=== PATIENT | female | born 1975 | race American Indian/Alaskan Native ===

== ENCOUNTER 2016-07-03 15:44 | Emergency (ER) | payer SELFPAY | END 2016-07-03 15:45 | disposition left against medical advice (07) | LOC: ED 15:44 | DX: Z53.21 Procedure and treatment not carried out due to patient leaving prior to being seen by health care provider (principal) ==

== ENCOUNTER 2017-12-02 00:31 | Emergency (ER) | payer SELFPAY ==
[2017-12-02 01:25] VITALS: BP 140/79
--- NOTE | 2017-12-02 02:29 | XRay Report ---
FINAL REPORT PROCEDURE: XR ANKLE 2V RT TECHNIQUE: RIGHT ankle radiographs, AP and lateral views. HISTORY: R ankle pain COMPARISON: No prior studies are available for comparison. FINDINGS: Fracture (s) and/or Dislocation(s): There is no acute fracture or dislocation. There is an old healed fracture of the distal fibula. Alignment: Normal. Joint space(s): Normal. Soft tissues: Normal. Bone mineralization: Normal. Foreign bodies: Normal. Calcaneal spurring: Normal. IMPRESSION: No evidence of an acute fracture or dislocation of the right ankle. Previous healed trauma to the distal right fibula..
--- NOTE | 2017-12-02 03:12 | Emergency Department Report ---
ED Lower Extremity HPI - General Chief Complaint: Extremity Problem,Nontraumatic Stated Complaint: RT LEG PAIN Time Seen by Provider: 12/02/17 02:05 Source: patient Mode of arrival: Ambulatory Limitations: No Limitations - History of Present Illness Initial Comments: There is a 42-year-old female who presents for right ankle pain is a recurrence of a chronic injury patient denies fall injury or trauma this episode patient did have a previous injury to the right ankle however he'll greater than 3 years and also occasional pain and aching swelling same joint pain at this time is 4 out 10 aching prolonged standing MD Complaint: ankle injury Onset/Timin -: unknown (chronic pain ) Injury: Ankle: Right Type of Injury: other Place: home Severity: moderate Severity scale (0 -10): 5 Improves With: nothing Context: other (chonric Gluta cuff ) Associated Symptoms: swelling, numbness, tingling, able to partially bear weight - Related Data Home Medications Medication Instructions Recorded Confirmed Last Taken HCTZ 12.5 mg PO DAILY 04/06/15 04/06/15 Unknown Previous Rx's Medication Instructions Recorded Last Taken Type Gentamicin 0.3% Ophth Soln 1 drops OP Q4H #1 bottle 04/07/15 Unknown Rx traMADol [Ultram 50 MG tab] 50 mg PO Q4HR PRN #20 tablet 04/07/15 Unknown Rx Ibuprofen [Motrin 800 MG tab] 800 mg PO Q8HR PRN #30 tablet 12/02/17 Unknown Rx Allergies Allergy/AdvReac Type Severity Reaction Status Date / Time Sulfa (Sulfonamide Allergy Unknown Verified 10/23/13 03:34 Antibiotics) ED Review of Systems ROS: Stated complaint: RT LEG PAIN Other details as noted in HPI Constitutional: denies: chills, fever Eyes: denies: eye pain, eye discharge, vision change ENT: denies: ear pain, throat pain Respiratory: denies: cough, shortness of breath, wheezing Cardiovascular: denies: chest pain, palpitations Endocrine: no symptoms reported Gastrointestinal: denies: abdominal pain, nausea, diarrhea Genitourinary: denies: urgency, dysuria, discharge Musculoskeletal: joint swelling, arthralgia, myalgia. denies: back pain Skin: denies: rash, lesions Neurological: denies: headache, weakness, paresthesias Psychiatric: denies: anxiety, depression Hematological/Lymphatic: denies: easy bleeding, easy bruising ED Past Medical Hx - Past Medical History Previous Medical History?: No Hx Hypertension: Yes Additional medical history: ASTIGMATISM - Surgical History Past Surgical History?: Yes Additional Surgical History: ectopic x2 - Social History Smoking Status: Never Smoker Substance Use Type: None - Medications Home Medications: Home Medications Medication Instructions Recorded Confirmed Last Taken Type HCTZ 12.5 mg PO DAILY 04/06/15 04/06/15 Unknown History Gentamicin 0.3% Ophth Soln 1 drops OP Q4H #1 bottle 04/07/15 Unknown Rx traMADol [Ultram 50 MG tab] 50 mg PO Q4HR PRN #20 tablet 04/07/15 Unknown Rx Ibuprofen [Motrin 800 MG tab] 800 mg PO Q8HR PRN #30 tablet 12/02/17 Unknown Rx ED Physical Exam - General Limitations: No Limitations General appearance: alert, in no apparent distress - Head Head exam: Present: atraumatic, normocephalic - Eye Eye exam: Present: normal appearance - ENT ENT exam: Present: mucous membranes moist - Neck Neck exam: Present: normal inspection - Respiratory Respiratory exam: Present: normal lung sounds bilaterally. Absent: respiratory distress - Cardiovascular Cardiovascular Exam: Present: regular rate, normal rhythm. Absent: systolic murmur, diastolic murmur, rubs, gallop - GI/Abdominal GI/Abdominal exam: Present: distended, normal bowel sounds - Rectal Rectal exam: Present: deferred - External exam: Present: normal external exam - Extremities Exam Extremities exam: Present: normal inspection, tenderness, joint swelling - Expanded Lower Extremity Exam Right Ankle exam: Present: tenderness, swelling, erythema Foot/Toe exam: Present: full ROM, tenderness, laceration. Absent: swelling, abrasion Neuro vascular tendon exam: Present: abnormal cap refill, sensory deficit, tendon deficit. Absent: no vascular compromise, pulse deficit, motor deficit ED Course Vital Signs 12/02/17 01:15 Temperature 99 F Pulse Rate 58 L Respiratory 14 Rate Blood Pressure 140/79 O2 Sat by Pulse 99 Oximetry ED Lower Extremity MDM - Lab Data Is acute on chronic foot strain x-rays no acute fracture or soft tissue swelling to the medial foot - Radiology Data Radiology results: pending, report reviewed, image reviewed - Medical Decision Making If Plantar Puncture Wound, Discussed with Patient: Risk of Foreign Body in W This is acute on chronic ankle sprain . pt is ambulatory with steady gait, in 2 -3 Plan continue support sleeve and says muscle relaxants or pain [facility] Critical care attestation.: If time is entered above; I have spent that time in minutes in the direct care of this critically ill patient, excluding procedure time. ED Disposition Clinical Impression: Right ankle strain Qualifiers: Encounter type: initial encounter Qualified Code(s): S96.911A - Strain of unspecified muscle and tendon at ankle and foot level, right foot, initial encounter Disposition: TO HOME OR SELFCARE Is pt being admited?: No Does the pt Need Aspirin: No (arrival) Condition: Stable Instructions: Ankle Exercises (GEN) Prescriptions: Ibuprofen [Motrin 800 MG tab] 800 mg PO Q8HR PRN #30 tablet PRN Reason: pain Referrals: PRIMARY CARE, [Primary Care Provider] - 3-5 Days Forms: Work/School Release Form(ED) Time of Disposition: 03:21
== END 2017-12-02 03:30 | disposition home or self-care (01) ==
LOC: ED 00:31
DX: S96.911A Strain of unspecified muscle and tendon at ankle and foot level, right foot, initial encounter (principal); I10 Essential (primary) hypertension; Z88.2 Allergy status to sulfonamides; X58.XXXA Exposure to other specified factors, initial encounter; Y93.89 Activity, other specified; Y92.89 Other specified places as the place of occurrence of the external cause; Y99.8 Other external cause status
CPT/HCPCS: 99283

== ENCOUNTER 2018-12-08 10:37 | Emergency (ER) | payer BC ==
--- NOTE | 2018-12-08 11:02 | Emergency Department Report ---
Minor Respiratory - HPI Chief Complaint: Extremity Problem,Nontraumatic Stated Complaint: BI ANKLE SWOLLEN Time Seen by Provider: 12/08/18 10:56 Pain Location: Other Minor Respiratory: Yes Able to Tolerate Fluids, No Rhinorrhea, No Sore Throat, No Ear Pain, No Cough, No Sick Contacts, No Hemoptysis, No Chest Pain, No Sh ortness of Breath, No Fever Other History: 43 YO OBESE AA FEMALE COMES TO ER CO B ANKLE SWELLING FOR WEEKS. SHE HAS NOT SEEN PCP. NO RECENT INJURY. PERVIOUS FX R ANKLE CHILD. NO CP. NO SOB. PMH. ANXIETY/INSOMINA. RX. KLONOPIN. PCP [facility] ED Review of Systems ROS: Stated complaint: BI ANKLE SWOLLEN Other details as noted in HPI Comment: All other systems reviewed and negative ED Past Medical Hx - Past Medical History Previous Medical History?: Yes Hx Hypertension: Yes (taken of bp meds by PMD in 2015) Additional medical history: ASTIGMATISM - Surgical History Past Surgical History?: Yes Additional Surgical History: ectopic x2 - Family History Family history: no significant - Social History Smoking Status: Never Smoker Substance Use Type: Alcohol Minor Respiratory Exam - Exam General: Vital signs noted. No distress. Alert and acting appropriately. HEENT: Yes Moist Mucous Membranes, No Pharyngeal Erythema, No Pharyngeal Exudates Ear: Neither TM Bulge, Neither TM Erythema, Neither EAC Pain, Neither EAC Discharge Neck: Yes Supple, No Adenopathy Lungs: Yes Good Air Exchange, No Wheezes, No Ronchi Heart: Yes Regular Abdomen: Yes Normal Bowel Sounds, No Tenderness, No Peritoneal Signs Skin: No Rash Neurologic: Alert and oriented, no deficits. Musculoskeletal: Unremarkable. ED Course Vital Signs 12/08/18 10:38 Temperature 98.3 F Pulse Rate 79 Respiratory 18 Rate Blood Pressure 135/73 [Right] O2 Sat by Pulse 97 Oximetry ED Medical Decision Making - Lab Data Result diagrams: 12/08/18 11:15 12/08/18 11:15 - Medical Decision Making Labs 12/08/18 12/08/18 11:15 11:15 WBC 5.7 RBC 3.88 Hgb 11.5 Hct 34.5 MCV 89 MCH 30 MCHC 33 RDW 13.5 Plt Count 246 Sodium 140 Potassium 4.0 Chloride 104.5 Carbon Dioxide 25 Anion Gap 15 BUN 11 Creatinine 0.8 Estimated GFR > 60 BUN/Creatinine Ratio 14 Glucose 101 H Calcium 8.7 Total Bilirubin 0.40 AST 16 ALT 14 Alkaline Phosphatase 53 Total Protein 6.4 Albumin 3.8 L Albumin/Globulin Ratio 1.5 Vital Signs 12/08/18 10:38 Temperature 98.3 F Pulse Rate 79 Respiratory 18 Rate Blood Pressure 135/73 [Right] O2 Sat by Pulse 97 Oximetry LABS NOTED BP NORMAL PT IS AMBULATORY NO CP NO SOB NEG HOMANS B ANKLE PLUS 1 NON PITTING EDEMA NO MURMUR LUNGS CLEAR ABD SNT HPI CONSISTENT WITH PITTING EDEMA LASIX 20 MG PO IN ER DC HOME WITH DC PLAN OF CARE AND PCP FOLLOW UP. DISCUSSED DIET/EXERCISE/SALT INTAKE WITH PT. - Differential Diagnosis RO ANDREW/NA ABN. Critical care attestation.: If time is entered above; I have spent that time in minutes in the direct care of this critically ill patient, excluding procedure time. ED Disposition Clinical Impression: Dependent edema Disposition: DC-01 TO HOME OR SELFCARE Is pt being admited?: No Does the pt Need Aspirin: No Condition: Stable Instructions: Leg Edema (ED) Additional Instructions: SUPPORT HOSE TO LEGS WHEN STANDING DECREASE SALT TO 2GM TOTAL PER DAY ELEVATE LEGS WHEN AT REST DRINK A LOT OF WATER FOLLOW UP WITH PCP REFERRAL BELOW Referrals: JOANNA SORIA MD [Staff Physician] - 3-5 Days Time of Disposition: 11:57
[2018-12-08 11:24] LABS: Hematocrit 34.5 % (30.3-42.9); Hemoglobin 11.5 gm/dl (10.1-14.3); Mean Corpuscular HGB Conc 33 % (30-34); Mean Corpuscular Volume 89 fl (79-97); Platelet Count 246 K/mm3 (140-440); Red Blood Count 3.88 M/mm3 (3.65-5.03); Red Cell Distribution Width 13.5 % (13.2-15.2)
[2018-12-08 11:38] LABS: Alanine Aminotransferase 14 units/L (7-56); Albumin 3.8 g/dL (3.9-5); BUN/Creatinine Ratio 14; Blood Urea Nitrogen 11 mg/dL (7-17); Calcium 8.7 mg/dL (8.4-10.2); Hemolysis Index 3
[2018-12-08] MEDS ORDERED: FUROSEMIDE 20 MG TAB PO ONE (11:45)
[2018-12-08 12:15] LABS: Bacteria,Urine 1+ /HPF (Negative); Bilirubin,Urine NEG (Negative); Blood,Urine NEG (Negative); Color,Urine Yellow (Yellow); Mucus,Urine FEW /HPF; Protein,Urine <15 mg/dL mg/dL (Negative)
[2018-12-08 12:16] LABS: HCG Qualitative,Urine Negative (Negative)
[2018-12-08 12:21] VITALS: BP 131/74
== END 2018-12-08 12:20 | disposition home or self-care (01) ==
LOC: ED 10:37
DX: R60.0 Localized edema (principal); I10 Essential (primary) hypertension; Z91.030 Bee allergy status; Z88.8 Allergy status to other drugs, medicaments and biological substances; Z91.018 Allergy to other foods
CPT/HCPCS: 36415; 80053; 81001; 81025; 85027; 87086; 99283

== ENCOUNTER 2019-09-11 22:23 | Emergency (ER) | payer BC ==
[2019-09-12 03:40] VITALS: BP 139/79
--- NOTE | 2019-09-12 03:58 | XRay Report ---
LEFT FOOT 3 VIEWS INDICATION / CLINICAL INFORMATION: Left foot pain and swelling. COMPARISON: None available. FINDINGS: BONES / JOINT(S): No acute fracture or subluxation. No significant arthritis. SOFT TISSUES: No significant abnormality. ADDITIONAL FINDINGS: None. IMPRESSION: Negative study. Signer Name: Arian Montalvo MD Signed: 09/12/2019 3:54 AM Workstation Name: [id number]
[2019-09-12] MEDS ORDERED: ACETAMINOPHEN 500 MG TAB PO ONE (04:39)
[2019-09-12] MEDS ORDERED: IBUPROFEN 600 MG TAB PO ONE (04:39)
--- NOTE | 2019-09-12 05:28 | Emergency Department Report ---
ED Extremity Problem HPI - General Chief complaint: Extremity Injury, Lower Stated complaint: POSS LF FOOT FRACTURE Source: patient Mode of arrival: Ambulatory Limitations: No Limitations - History of Present Illness Initial comments: Patient is a 44-year-old -[place] female with past medical history of hypertension who presents to the ED with a complaint of acute onset persistent severe nontraumatic left foot pain for the last 3 weeks. Patient states that the pain has worsened such that walking or bearing weight on the left foot makes the pain worse. Patient denies fall, fever, chills, nausea, vomiting, dizziness, syncope, traumatic injury, chest pain, shortness of breath, heavy lifting or low back pain and hip pain. Patient states that she is on her feet a lot at work and that this makes the pain even worse. MD Complaint: extremity pain (Left foot pain), joint paint (Left foot pain) -: Sudden, week(s) (3) Location: left, lower extremity (foot) History of Same: No -: Yes arthralgia Radiation: none Severity scale (0 -10): 8 Quality: aching, sharp Consistency: constant Improves with: nothing Worsens with: weight bearing, walking, exertion, palpation Associated Symptoms: denies other symptoms, arthralgias (left foot pain). denies: chest pain, shortness of breath, fever, myalgias - Related Data Previous Rx's Medication Instructions Recorded Last Taken Type Ibuprofen [Motrin] 800 mg PO Q8HR PRN #30 tablet 09/12/19 Unknown Rx tiZANidine [Zanaflex 4mg TAB] 4 mg PO Q8H PRN #21 tablet 09/12/19 Unknown Rx traMADoL [Ultram] 50 mg PO Q6HR PRN #12 tablet 09/12/19 Unknown Rx Allergies Allergy/AdvReac Type Severity Reaction Status Date / Time tillman Allergy Diarrhea Verified 12/08/18 10:43 bee venom protein (honey bee) Allergy Anaphylaxis Verified 12/08/18 10:43 mushroom Allergy Anaphylaxis Verified 12/08/18 10:43 Sulfa (Sulfonamide Allergy Unknown Verified 12/08/18 10:43 Antibiotics) dairy Allergy Diarrhea Uncoded 02/21/18 18:27 ED Review of Systems ROS: Stated complaint: POSS LF FOOT FRACTURE Other details as noted in HPI Constitutional: denies: chills, fever Eyes: denies: eye pain, eye discharge, vision change ENT: denies: ear pain, throat pain Respiratory: denies: cough, shortness of breath, wheezing Cardiovascular: denies: chest pain, palpitations Endocrine: no symptoms reported Gastrointestinal: denies: abdominal pain, nausea, diarrhea Genitourinary: denies: urgency, dysuria, discharge Musculoskeletal: arthralgia (Left foot pain). denies: back pain, joint swelling Skin: denies: rash, lesions Neurological: denies: headache, weakness, paresthesias Psychiatric: denies: anxiety, depression Hematological/Lymphatic: denies: easy bleeding, easy bruising ED Past Medical Hx - Past Medical History Previous Medical History?: Yes Hx Hypertension: Yes (taken of bp meds by PMD in 2016) Additional medical history: ASTIGMATISM - Surgical History Past Surgical History?: Yes Additional Surgical History: ectopic x2 - Social History Smoking Status: Current Every Day Smoker Substance Use Type: Alcohol - Medications Home Medications: Home Medications Medication Instructions Recorded Confirmed Last Taken Type Ibuprofen [Motrin] 800 mg PO Q8HR PRN #30 tablet 09/12/19 Unknown Rx tiZANidine [Zanaflex 4mg TAB] 4 mg PO Q8H PRN #21 tablet 09/12/19 Unknown Rx traMADoL [Ultram] 50 mg PO Q6HR PRN #12 tablet 09/12/19 Unknown Rx ED Physical Exam - General Limitations: No Limitations General appearance: alert, in no apparent distress - Head Head exam: Present: atraumatic, normocephalic, normal inspection - Eye Eye exam: Present: normal appearance, PERRL, EOMI Pupils: Present: normal accommodation - ENT ENT exam: Present: normal exam, normal orophraynx, mucous membranes moist, TM's normal bilaterally, normal external ear exam - Neck Neck exam: Present: normal inspection, full ROM - Respiratory Respiratory exam: Present: normal lung sounds bilaterally. Absent: respiratory distress, wheezes, rales, stridor, chest wall tenderness, accessory muscle use - Cardiovascular Cardiovascular Exam: Present: regular rate, normal rhythm, normal heart sounds. Absent: systolic murmur, diastolic murmur, rubs, gallop - GI/Abdominal GI/Abdominal exam: Present: soft, normal bowel sounds. Absent: tenderness, guarding, rebound, hyperactive bowel sounds, hypoactive bowel sounds, organomegaly - Extremities Exam Extremities exam: Present: normal inspection, tenderness (Palpable severe left lateral foot tenderness with limited range of motion due to pain), normal capillary refill. Absent: full ROM (Limited range of motion of left foot due to pain), joint swelling, calf tenderness - Back Exam Back exam: Present: normal inspection, full ROM. Absent: tenderness, muscle spasm, paraspinal tenderness, vertebral tenderness - Neurological Exam Neurological exam: Present: alert, oriented X3, CN II-XII intact, normal gait, reflexes normal - Psychiatric Psychiatric exam: Present: normal affect, normal mood - Skin Skin exam: Present: warm, dry, intact, normal color. Absent: rash ED Course Vital Signs 09/11/19 09/12/19 22:59 03:39 Temperature 98.4 F Pulse Rate 65 58 L Respiratory 18 16 Rate Blood Pressure 139/79 Blood Pressure 136/80 [Right] O2 Sat by Pulse 99 98 Oximetry ED Medical Decision Making - Radiology Data Radiology results: report reviewed, image reviewed Findings [facility] [address] [place] [address] XRay Report Signed Patient: JACKELYN SCRUGGS MR#: [id number] : 1975 Acct:[id number] Age/Sex: 44 / F ADM Date: 09/11/19 Loc: ED Attending Dr: Ordering Physician: BLANQUITA FLORENTINO MD Date of Service: 09/11/19 Procedure(s): XR foot 3+V LT Accession Number(s): [id number] cc: ED MD MISHEL Fluoro Time In Minutes: LEFT FOOT 3 VIEWS INDICATION / CLINICAL INFORMATION: Left foot pain and swelling. COMPARISON: None available. FINDINGS: BONES / JOINT(S): No acute fracture or subluxation. No significant arthritis. SOFT TISSUES: No significant abnormality. ADDITIONAL FINDINGS: None. IMPRESSION: Negative study. Signer Name: Arian Montalvo MD Signed: 09/12/2019 3:54 AM Workstation Name: [id number] Transcribed By: RT Dictated By: Arian Montalvo MD Electronically Authenticated By: Arian Montalvo MD Signed Date/Time: 09/12/19353 DD/ 3 TD/TT: - Medical Decision Making This is a 44-year-old -[place] female with past medical history of hypertension who presents to the ED with a complaint of acute onset persistent severe nontraumatic left foot pain for the last 3 weeks. Patient states that the pain has worsened such that walking or bearing weight on the left foot makes the pain worse. In the ED, patient is alert and oriented x3 and is not in distress but appears to be in pain. Patient was treated for pain in the ED and left foot x-ray shows no acute fractures or subluxations. The patient left foot was splinted with Herman wrap and fitted with postop shoe. Patient was discharged home on pain medications and muscle relaxants and was advised to follow-up with her primary care physician in 5 to 7 days for reevaluation or return to the ED immediately if symptoms get worse. - Differential Diagnosis Foot fracture; Foot sprain; Tendonitis of foot; Muscle strain Critical care attestation.: If time is entered above; I have spent that time in minutes in the direct care of this critically ill patient, excluding procedure time. ED Disposition Clinical Impression: Tendinitis of left foot Sprain of left foot Qualifiers: Encounter type: initial encounter Qualified Code(s): S93.602A - Unspecified sprain of left foot, initial encounter Muscle strain of left foot Qualifiers: Encounter type: initial encounter Qualified Code(s): S96.912A - Strain of unspecified muscle and tendon at ankle and foot level, left foot, initial encounter Disposition: - TO HOME OR SELFCARE Is pt being admited?: No Does the pt Need Aspirin: No Condition: Stable Instructions: Muscle Strain (ED), Foot Sprain (ED), Tendinitis (ED) Additional Instructions: Take medications with food, drink plenty of fluids and follow-up with your primary care physician in 7 to 10 days for reevaluation. Return to the ED immediately if symptoms get worse. Prescriptions: Ibuprofen [Motrin] 800 mg PO Q8HR PRN #30 tablet PRN Reason: Pain , Severe (7-10) traMADoL [Ultram] 50 mg PO Q6HR PRN #12 tablet PRN Reason: Pain tiZANidine [Zanaflex 4mg TAB] 4 mg PO Q8H PRN #21 tablet PRN Reason: Muscle Spasm Referrals: ABIEL BENITO JR, MD [Primary Care Provider] - 3-5 Days Forms: Work/School Release Form(ED) Time of Disposition: 05:32 Print Language: SWEDISH
== END 2019-09-12 06:10 | disposition home or self-care (01) ==
LOC: ED 22:23
DX: S93.602A Unspecified sprain of left foot, initial encounter (principal); M77.52 Other enthesopathy of left foot and ankle; I10 Essential (primary) hypertension; F17.200 Nicotine dependence, unspecified, uncomplicated; Z98.890 Other specified postprocedural states; Z79.1 Long term (current) use of non-steroidal anti-inflammatories (NSAID); Z79.899 Other long term (current) drug therapy; Z91.018 Allergy to other foods; Z91.030 Bee allergy status; X58.XXXA Exposure to other specified factors, initial encounter; Y93.89 Activity, other specified; Y92.89 Other specified places as the place of occurrence of the external cause; Y99.8 Other external cause status

== ENCOUNTER 2021-01-09 11:04 | Emergency (ER) | payer BC ==
--- NOTE | 2021-01-09 11:58 | Emergency Department Report ---
ED General Adult HPI - General Chief complaint: Upper Respiratory Infection Stated complaint: EXPOSED TO VIRUS Time Seen by Provider: 01/09/21 11:24 Source: patient Mode of arrival: Ambulatory Limitations: No Limitations - History of Present Illness Initial comments: 45-year-old -[place] female patient presents with complaints of cough, fatigue, and sore throat x1 week. Patient states her symptoms began after having contact with a patient who was diagnosed with mononucleosis pneumonia. Patient states she gave to breathing treatments to the patient. She denies any hemoptysis, shortness of breath, chest pain, fever. she states that she does have some loss of taste, but has normal smell. She has not been tested or vaccinated for COVID-19 per patient. She states the patient she had contact with has tested negative for COVID-19 3 times since the onset of his symptoms. Past medical history includes hypertension. Severity scale (0 -10): 6 - Related Data Previous Rx's Medication Instructions Recorded Last Taken Type Ibuprofen [Motrin] 800 mg PO Q8HR PRN #30 tablet 09/12/19 Unknown Rx tiZANidine [Zanaflex 4mg TAB] 4 mg PO Q8H PRN #21 tablet 09/12/19 Unknown Rx traMADoL [Ultram] 50 mg PO Q6HR PRN #12 tablet 09/12/19 Unknown Rx Benzonatate 200 mg PO TID PRN #30 capsule 01/09/21 Unknown Rx Loratadine [Claritin] 10 mg PO QDAY PRN #10 tablet 01/09/21 Unknown Rx Allergies Allergy/AdvReac Type Severity Reaction Status Date / Time tillman Allergy Diarrhea Verified 12/08/18 10:43 bee venom protein (honey bee) Allergy Anaphylaxis Verified 12/08/18 10:43 mushroom Allergy Anaphylaxis Verified 12/08/18 10:43 Sulfa (Sulfonamide Allergy Unknown Verified 12/08/18 10:43 Antibiotics) dairy Allergy Diarrhea Uncoded 02/21/18 18:27 ED Review of Systems ROS: Stated complaint: EXPOSED TO VIRUS Other details as noted in HPI Constitutional: malaise. denies: chills, diaphoresis, fever ENT: throat pain Respiratory: cough. denies: shortness of breath Cardiovascular: denies: chest pain Gastrointestinal: denies: abdominal pain, nausea, vomiting Genitourinary: denies: urgency, dysuria, frequency Musculoskeletal: denies: back pain Skin: denies: rash, lesions Neurological: denies: headache Hematological/Lymphatic: denies: swollen glands ED Past Medical Hx - Past Medical History Hx Hypertension: Yes (taken of bp meds by PMD in 2016) Additional medical history: ASTIGMATISM - Surgical History Additional Surgical History: ectopic x2 - Social History Smoking Status: Current Every Day Smoker Substance Use Type: Alcohol - Medications Home Medications: Home Medications Medication Instructions Recorded Confirmed Last Taken Type Ibuprofen [Motrin] 800 mg PO Q8HR PRN #30 tablet 09/12/19 Unknown Rx tiZANidine [Zanaflex 4mg TAB] 4 mg PO Q8H PRN #21 tablet 09/12/19 Unknown Rx traMADoL [Ultram] 50 mg PO Q6HR PRN #12 tablet 09/12/19 Unknown Rx Benzonatate 200 mg PO TID PRN #30 capsule 01/09/21 Unknown Rx Loratadine [Claritin] 10 mg PO QDAY PRN #10 tablet 01/09/21 Unknown Rx ED Physical Exam - General Limitations: No Limitations General appearance: alert, in no apparent distress - Head Head exam: Present: atraumatic, normocephalic - Eye Eye exam: Present: normal appearance. Absent: scleral icterus - Neck Neck exam: Present: normal inspection - Respiratory Respiratory exam: Present: normal lung sounds bilaterally. Absent: respiratory distress, wheezes, rales, rhonchi, accessory muscle use - Cardiovascular Cardiovascular Exam: Present: regular rate, normal rhythm. Absent: systolic murmur, diastolic murmur, rubs, gallop - Neurological Exam Neurological exam: Present: alert, oriented X3 - Psychiatric Psychiatric exam: Present: normal affect, normal mood - Skin Skin exam: Present: warm, dry, intact, normal color. Absent: rash ED Course Vital Signs 01/09/21 01/09/21 11:12 15:39 Temperature 98.6 F 97.6 F Pulse Rate 103 H 98 H Respiratory 18 20 Rate Blood Pressure 146/91 132/81 [Right] O2 Sat by Pulse 100 100 Oximetry ED Medical Decision Making - Radiology Data Radiology results: report reviewed 45-year-old -[place] female patient presents with complaints of cough, fatigue, and sore throat x1 week. Patient states her symptoms began after having contact with a patient who was diagnosed with mononucleosis pneumonia. Patient states she gave to breathing treatments to the patient. She denies any hemoptysis, shortness of breath, chest pain, fever. she states that she does have some loss of taste, but has normal smell. She has not been tested or vaccinated for COVID-19 per patient. She states the patient she had contact with has tested negative for COVID-19 3 times since the onset of his symptoms. Past medical history includes hypertension. - Medical Decision Making CHEST 2 VIEWS INDICATION / CLINICAL INFORMATION: Cough. COMPARISON: None available. FINDINGS: SUPPORT DEVICES: None. HEART / MEDIASTINUM: The heart size and pulmonary vasculature are normal. LUNGS / PLEURA: No significant pulmonary or pleural abnormality. No pneumothorax. ADDITIONAL FINDINGS: No significant additional findings. IMPRESSION: No acute findings. Critical care attestation.: If time is entered above; I have spent that time in minutes in the direct care of this critically ill patient, excluding procedure time. ED Disposition Clinical Impression: URI (upper respiratory infection) Disposition: HOME / SELF CARE / HOMELESS Is pt being admited?: No Condition: Stable Instructions: Viral Respiratory Infection Additional Instructions: Please seek out outpatient COVID-19 testing within the next 24 to 48 hours and self quarantine until your results are back and further instructions are given. Prescriptions: Benzonatate 200 mg PO TID PRN #30 capsule PRN Reason: Cough Loratadine [Claritin] 10 mg PO QDAY PRN #10 tablet PRN Reason: Congestion Referrals: PRIMARY CARE, [Primary Care Provider] - 3-5 Days [facility] [Provider Group] - 3-5 Days Forms: Work/School Release Form(ED)
--- NOTE | 2021-01-09 12:59 | XRay Report ---
CHEST 2 VIEWS INDICATION / CLINICAL INFORMATION: Cough. COMPARISON: None available. FINDINGS: SUPPORT DEVICES: None. HEART / MEDIASTINUM: The heart size and pulmonary vasculature are normal. LUNGS / PLEURA: No significant pulmonary or pleural abnormality. No pneumothorax. ADDITIONAL FINDINGS: No significant additional findings. IMPRESSION: No acute findings. Signer Name: Arian Montalvo MD Signed: 01/09/2021 12:55 PM Workstation Name: [id number]
[2021-01-09 15:41] VITALS: BP 132/81
== END 2021-01-09 15:39 | disposition home or self-care (01) ==
LOC: ED 11:04
DX: J06.9 Acute upper respiratory infection, unspecified (principal); F17.200 Nicotine dependence, unspecified, uncomplicated; F10.20 Alcohol dependence, uncomplicated; I10 Essential (primary) hypertension; Z91.030 Bee allergy status; Z91.011 Allergy to milk products; Z88.2 Allergy status to sulfonamides; Z91.018 Allergy to other foods
CPT/HCPCS: 36415; 71046; 86308; 99283

== ENCOUNTER 2021-02-25 01:38 | Emergency (ER) | payer BC ==
--- NOTE | 2021-02-25 07:16 | Emergency Department Report ---
ED Fever HPI - General Chief Complaint: Fever Stated Complaint: FEVER/BODYACHES Time Seen by Provider: 02/25/21 06:56 - History of Present Illness Initial Comments: Patient presents with fever, chills, myalgia, and headache for 1 day. She started getting sick last night at work. She came here for evaluation. She took Tylenol and felt a little better. She also states that she took tramadol and Motrin. She has had no sick contacts. She does report cough congestion. She has had generalized malaise. Her daughter is at home sick with a sore throat. She was concerned that she may have Covid and came here. Patient has h ad no known coronavirus exposure. She did not get a Covid test prior to arrival or yesterday. She did not get Covid vaccination or influenza vaccination. Other than the respiratory symptoms and fever and muscle aches, she has no complaints. There has been no GI component. She has no urinary component. There is no rash. ED Review of Systems ROS: Stated complaint: FEVER/BODYACHES Other details as noted in HPI Comment: All other systems reviewed and negative Constitutional: see HPI Eyes: denies: eye pain ENT: denies: epistaxis Respiratory: see HPI Cardiovascular: denies: chest pain Endocrine: denies: unexplained weight loss Gastrointestinal: denies: abdominal pain Genitourinary: denies: dysuria Musculoskeletal: as per HPI Skin: denies: rash Neurological: denies: headache Hematological/Lymphatic: denies: easy bruising ED Past Medical Hx - Past Medical History Hx Hypertension: Yes (taken of bp meds by PMD in 2016) Additional medical history: ASTIGMATISM - Surgical History Additional Surgical History: ectopic x2 - Family History Family history: hypertension - Social History Smoking Status: Current Every Day Smoker Substance Use Type: Alcohol - Medications Home Medications: Home Medications Medication Instructions Recorded Confirmed Last Taken Type tiZANidine [Zanaflex 4mg TAB] 4 mg PO Q8H PRN #21 tablet 09/12/19 Unknown Rx traMADoL [Ultram] 50 mg PO Q6HR PRN #12 tablet 09/12/19 Unknown Rx Loratadine [Claritin] 10 mg PO QDAY PRN #10 tablet 01/09/21 Unknown Rx Benzonatate 200 mg PO TID PRN #30 capsule 02/25/21 Unknown Rx Ibuprofen [Motrin 800 MG tab] 800 mg PO Q8HR PRN #30 tablet 02/25/21 Unknown Rx methylPREDNISolone [Medrol 4MG 4 mg PO DAILY #1 tab.ds.pk 02/25/21 Unknown Rx DOSEPAK (21 tabs)] ED Physical Exam - General Limitations: No Limitations, Other ( Pulse ox noted and normal) General appearance: alert, in no apparent distress - Head Head exam: Present: atraumatic, normocephalic - Eye Eye exam: Present: normal appearance, EOMI - ENT ENT exam: Present: normal orophraynx, normal external ear exam - Neck Neck exam: Present: normal inspection. Absent: meningismus - Respiratory Respiratory exam: Present: normal lung sounds bilaterally. Absent: respiratory distress - Cardiovascular Cardiovascular Exam: Present: regular rate, normal rhythm - GI/Abdominal GI/Abdominal exam: Present: soft. Absent: tenderness - Extremities Exam Extremities exam: Present: normal capillary refill - Back Exam Back exam: Absent: CVA tenderness (R), CVA tenderness (L) - Neurological Exam Neurological exam: Present: alert, oriented X3, normal gait - Psychiatric Psychiatric exam: Present: normal affect, normal mood - Skin Skin exam: Present: warm, dry ED Course Vital Signs 02/25/21 02/25/21 02/25/21 02:20 07:33 07:34 Temperature 99.8 F H 98.9 F Pulse Rate 78 81 Respiratory 19 16 16 Rate Blood Pressure 148/91 130/73 [Right] O2 Sat by Pulse 98 96 97 Oximetry - Reevaluation(s) Reevaluation #1: 02/25/21 07:37 patient was seen in discharge. She specifically requested an influenza test. This was sent although clinically, I would not treat her with Tamiflu. 02/25/21 07:38 ED Medical Decision Making - Medical Decision Making At this time, she has no adventitious breath sounds to suggest pneumonia. It is likely that she has coronavirus given her current prevalence. Patient could have some other viral illness. Regardless, she would not be a candidate for antibiotic therapy as this does not appear to be bacterial in nature. She was treated symptomatically and referred for outpatient evaluation and follow-up. Critical Care Time: No Critical care attestation.: If time is entered above; I have spent that time in minutes in the direct care of this critically ill patient, excluding procedure time. ED Disposition Clinical Impression: Viral URI, Acute febrile illness Disposition: HOME / SELF CARE / HOMELESS Is pt being admited?: No Condition: Stable Instructions: Upper Respiratory Infection, Adult, Viral Respiratory Infection, [id number], Cough, Adult Additional Instructions: Alternate Tylenol and Motrin for fever. Push fluids. Return for problems. Follow-up with your regular doctor for recheck. Prescriptions: Benzonatate 200 mg PO TID PRN #30 capsule PRN Reason: Cough methylPREDNISolone [Medrol 4MG DOSEPAK (21 tabs)] 4 mg PO DAILY #1 tab.ds.pk Ibuprofen [Motrin 800 MG tab] 800 mg PO Q8HR PRN #30 tablet PRN Reason: Pain , Severe (7-10) Referrals: PRIMARY CARE,MD [Primary Care Provider] - 3-5 Days
[2021-02-25 07:35] VITALS: BP 130/73
== END 2021-02-25 07:57 | disposition home or self-care (01) ==
LOC: ED 01:38
DX: J06.9 Acute upper respiratory infection, unspecified (principal); R50.9 Fever, unspecified
CPT/HCPCS: 99283; 87502